=== PATIENT | male | born 1960 | race Caucasian/White ===

== ENCOUNTER 2022-03-03 05:24 | Day surgery (SDC) | payer BC ==
[2022-03-03] MEDS ORDERED: Acetaminophen 500 MG Tab PO ONE (05:30)
[2022-03-03] MEDS ORDERED: Dextrose 5%-Lactated Ringers 1,000 ML IV SCH (06:30)
[2022-03-03] MEDS ORDERED: Bupivacaine 0.5% 50 ML MDV ONE (06:51)
[2022-03-03] MEDS ORDERED: Bupivacaine 0.5%/EPINEPHrine 1:200,000 50 ML MDV ONE (06:51)
[2022-03-03] MEDS ORDERED: Lidocaine 1% with EPINEPHrine 1:100,000 50 ML MDV ONE (06:51)
[2022-03-03] MEDS ORDERED: fentaNYL 250 MCG/5 ML SDV ONE (07:05)
[2022-03-03] MEDS ORDERED: Rocuronium 50 MG/5 ML Vial ONE (07:05)
[2022-03-03] MEDS ORDERED: Neostigmine Methylsulfate 1 MG/ML 5 ML Syringe ONE (07:05)
[2022-03-03] MEDS ORDERED: Ondansetron 4 MG/2 ML SDV ONE (07:05)
[2022-03-03] MEDS ORDERED: Propofol 200 MG/20 ML SDV ONE (07:05)
[2022-03-03] MEDS ORDERED: Succinylcholine 200 MG/10 ML MDV ONE (07:05)
[2022-03-03] MEDS ORDERED: Glycopyrrolate 0.2 MG/ML 5 ML MDV ONE (07:05)
[2022-03-03] MEDS ORDERED: Dexamethasone 4 MG/ML SDV ONE (07:05)
[2022-03-03] MEDS ORDERED: cefOXitin 2 GM in Sodium Chloride 0.9% 50 ML IV ONE (07:15)
[2022-03-03] MEDS ORDERED: fentaNYL 100 MCG/2 ML SDV ONE (07:52)
[2022-03-03] MEDS ORDERED: HYDROmorphone 0.5 MG/0.5 ML Syringe IVPUSH PRN (11:00)
[2022-03-03] MEDS ORDERED: Ondansetron 4 MG/2 ML SDV IVPUSH PRN (11:00)
[2022-03-03] MEDS ORDERED: Pantoprazole 40 MG Vial IVPUSH SCH (11:00)
[2022-03-03] MEDS ORDERED: HYDROmorphone 1 MG/ML Syringe IV PRN (11:00)
[2022-03-03] MEDS: oxyCODONE 5 MG Tab PO PRN ×3 (11:08→19:56)
[2022-03-03] MEDS: Gabapentin 300 MG Cap PO SCH ×2 (13:18→20:00)
[2022-03-03] MEDS: cefOXitin 2 GM in Sodium Chloride 0.9% 50 ML IV SCH ×2 (13:18→17:38)
[2022-03-04] MEDS: cefOXitin 2 GM in Sodium Chloride 0.9% 50 ML IV SCH ×2 (00:16→05:42)
[2022-03-04] MEDS: oxyCODONE 5 MG Tab PO PRN (04:51)
[2022-03-04] MEDS: DULoxetine 30 MG Cap PO SCH ×2 (08:25→08:27)
[2022-03-04] MEDS: Gabapentin 300 MG Cap PO SCH (08:25)
[2022-03-04] MEDS ORDERED: Lisinopril 10 MG Tab PO SCH (09:00)
[2022-03-04] MEDS ORDERED: Cetirizine 10 MG Tab PO SCH (09:00)
== END 2022-03-04 09:00 | disposition home or self-care (01) ==
LOC: JP.SDS 05:24 → JP.2SS 08:45 → JP.SDS 03-04 09:00
PROVIDERS: ATTEND Surgery
DX: K80.10 Calculus of gallbladder with chronic cholecystitis without obstruction (principal); K74.00 Hepatic fibrosis, unspecified; K74.69 Other cirrhosis of liver; K75.9 Inflammatory liver disease, unspecified; I48.91 Unspecified atrial fibrillation; I42.0 Dilated cardiomyopathy; I10 Essential (primary) hypertension; Z79.899 Other long term (current) drug therapy; Z87.891 Personal history of nicotine dependence
CPT/HCPCS: 36415; 82247; 83880; 84075; 85027; 85610; 85730; A9270-GY; C9113; J0171; J0330; J0694; J1100; J2405; J2704; J2710; J2795; J3010; J3490; J7121